=== PATIENT | female | born 1945 | race Caucasian/White ===

== ENCOUNTER → 2017-09-18 | Outpatient (REF) | payer OTHER ==
[2017-09-18 19:21] LABS: BASO % 0.5 % (0.0-1.0); EOS # 0.1 10^3/uL (0.0-0.50); EOS % 1.7 % (0.0-3.0); HEMATOCRIT 44.1 % (36.0-47.0); HEMOGLOBIN 15.6 g/dl (12.0-16.0); IMMATURE GRANULOCYTE % 0.5 % (0-0); LYMPH # 2.8 10^3/uL (1.5-4.5); MEAN CORPUSCULAR HEMOGLOBIN 32.4 pg (27.0-33.0); MEAN CORPUSCULAR HGB CONC 35.4 g/dl (32.0-36.5); MEAN CORPUSCULAR VOLUME 91.7 fl (80.0-96.0); MONO # 0.3 10^3/uL (0.0-0.8); MONO % 5.4 % (0.0-5.0); NEUTROPHILS # 2.6 10^3/uL (1.8-7.7); NEUTROPHILS % 44.9 % (36.0-66.0); PLATELET COUNT, AUTOMATED 279 10^3/uL (150-450); RED BLOOD COUNT 4.81 10^6/uL (4.00-5.40); WHITE BLOOD COUNT 5.9 10^3/uL (4.0-10.0)
[2017-09-18 19:47] LABS: ALBUMIN 4.4 GM/DL (3.2-5.2); ALKALINE PHOSPHATASE 129 U/L (45-117); ANION GAP 11 MEQ/L (8-16); BILIRUBIN,TOTAL 0.9 MG/DL (0.2-1.0); CARBON DIOXIDE LEVEL 24 MEQ/L (21-32); CHLORIDE LEVEL 103 MEQ/L (98-107); CHOLESTEROL LEVEL 330 MG/DL (<200); CHOLESTEROL RISK RATIO 11.379 (<5); CREATININE FOR GFR 0.87 MG/DL (0.55-1.02); GLOMERULAR FILTRATION RATE > 60.0 (>39); GLUCOSE, FASTING 148 MG/DL (83-110); HDL CHOLESTEROL 29 MG/DL (>40); NON-HDL-C 301 MG/DL; POTASSIUM SERUM 4.9 MEQ/L (3.5-5.1); SODIUM LEVEL 138 MEQ/L (136-145); TRIGLYCERIDES LEVEL 2734 MG/DL (<150)
[2017-09-18 20:07] LABS: ALBUMIN/GLOBULIN RATIO 1.07 (1.00-1.93); BLOOD UREA NITROGEN 16 MG/DL (7-18); CALCIUM LEVEL 9.3 MG/DL (8.8-10.2); TOTAL PROTEIN 8.5 GM/DL (6.4-8.2)
[2017-09-18 21:01] LABS: ALT/SGPT 48 U/L (12-78); AST/SGOT 45 U/L (7-37)
== END ==
LOC: M LAB REF 16:26
DX: E78.4 Other hyperlipidemia (principal); Z80.0 Family history of malignant neoplasm of digestive organs; Z83.3 Family history of diabetes mellitus; Z00.00 Encounter for general adult medical examination without abnormal findings
CPT/HCPCS: 80053

== ENCOUNTER 2018-01-18 08:13 | Day surgery (SDC) | payer OTHER ==
[~2018-01-18 08:13] MED LIST: LIDOCAINE 2% INJ 100 MG/5 ML SDV (FOR ANES.) As Ordered; PROPOFOL 200 MG/20 ML VIAL As Ordered
[2018-01-18] MEDS: NS 1,000 ML IV (08:28)
[2018-01-18] MEDS ORDERED: PROPOFOL 200 MG/20 ML VIAL As Ordered (10:14)
== END 2018-01-18 11:01 | disposition home or self-care (01) ==
LOC: M OPP 08:13
DX: Z12.11 Encounter for screening for malignant neoplasm of colon (principal); Z80.0 Family history of malignant neoplasm of digestive organs; D12.7 Benign neoplasm of rectosigmoid junction; D12.5 Benign neoplasm of sigmoid colon; D12.4 Benign neoplasm of descending colon; K62.1 Rectal polyp; K57.30 Diverticulosis of large intestine without perforation or abscess without bleeding; E78.5 Hyperlipidemia, unspecified; M19.90 Unspecified osteoarthritis, unspecified site; M54.30 Sciatica, unspecified side; Z78.0 Asymptomatic menopausal state; Z79.899 Other long term (current) drug therapy; Z80.8 Family history of malignant neoplasm of other organs or systems
CPT/HCPCS: 45385

== ENCOUNTER 2020-02-15 20:58 | Emergency (ER) | payer MEDICARE, OTHER ==
[~2020-02-15] VITALS: Ht 167.6 cm; Wt 86.1 kg
[~2020-02-15 20:58] MED LIST changes: +FENO145T7; -LIDOCAINE 2% INJ 100 MG/5 ML SDV (FOR ANES.) As Ordered; +MULT1TAB10 PO; +OMEG1CAP4; +PROBCAP4 PO; -PROPOFOL 200 MG/20 ML VIAL As Ordered
[2020-02-15 21:18] LABS: BASO % 0.2 % (0.0-1.0); EOS # 0.1 10^3/uL (0.0-0.5); EOS % 1.4 % (0.0-3.0); HEMATOCRIT 40.5 % (36.0-47.0); LYMPH # 2.8 10^3/uL (1.5-5.0); LYMPH % 33.8 % (24.0-44.0); MEAN CORPUSCULAR HEMOGLOBIN 33.7 pg (27.0-33.0); MONO # 0.5 10^3/uL (0.0-0.8); NEUTROPHILS # 4.9 10^3/uL (1.5-8.5); PLATELET COUNT, AUTOMATED 192 10^3/uL (150-450); RED BLOOD COUNT 4.45 10^6/uL (4.00-5.40); WHITE BLOOD COUNT 8.4 10^3/uL (4.0-10.0)
[2020-02-15 22:09] LABS: BLOOD UREA NITROGEN 16 MG/DL (7-18); CALCIUM LEVEL 7.1 MG/DL (8.8-10.2); CARBON DIOXIDE LEVEL 25 MEQ/L (21-32); CHLORIDE LEVEL 98 MEQ/L (98-107); CK-MB VALUE MASS 1.7 NG/ML (<3.6); CPK CREATINE PHOSPHOKINASE 190 U/L (26-192); CREATININE FOR GFR 0.88 MG/DL (0.55-1.30); GLOMERULAR FILTRATION RATE > 60.0 (>39); GLUCOSE, FASTING 213 MG/DL (70-100); MB/CK RELATIVE INDEX 0.89 (< OR =4); POTASSIUM SERUM 4.3 MEQ/L (3.5-5.1); SODIUM LEVEL 132 MEQ/L (136-145); TROPONIN I < 0.02 NG/ML (< 0.10)
[2020-02-15] MEDS ORDERED: cloNIDine 0.1 MG TAB PO ONE (22:30)
[2020-02-15] MEDS ORDERED: ISOVUE-370 76% 100ML VIAL As Ordered ONE ×2 (22:57→23:17)
--- NOTE | 2020-02-15 23:37 | REPVR ---
PROCEDURE INFORMATION: Exam: CT Angiography Chest With Contrast Exam date and time: 02/15/2020 11:28 PM Age: 74 years old Clinical indication: Other: Back pain TECHNIQUE: Imaging protocol: Computed tomographic angiography of the chest with intravenous contrast. 3D rendering: MIP and/or 3D reconstructed images were created by the technologist. Radiation optimization: All CT scans at this facility use at least one of these dose optimization techniques: automated exposure control; mA and/or kV adjustment per patient size (includes targeted exams where dose is matched to clinical indication); or iterative reconstruction. Contrast material: ISOVUE 370; Contrast volume: 100 ml; Contrast route: IV; COMPARISON: CR PORTABLE CHEST X-RAY 02/15/2020 9:22 PM FINDINGS: Pulmonary arteries: No focal pulmonary artery filling defect to suggest acute pulmonary embolus. Aorta: [place] type B aortic dissection originating just distal to the great vessel origins. Descending aorta measures 3.6 cm. Thyroid: Enlarged multinodular thyroid gland, incompletely imaged because of osseous and contrast related streak artifact. Lungs: Pulmonary vascular/interstitial pattern does not suggest active pulmonary edema. No suspicious lung mass or air space process. No central endobronchial lesion. Atelectasis is present at the lung bases. Pleural space: No pleural effusion or pneumothorax. Heart: No overt cardiac enlargement or abnormal volume of pericardial fluid. . Lymph nodes: No enlarged lymph nodes. Bones/joints: Bony structures are unremarkable except for benign DISH changes. IMPRESSION: 1. [place] type B aortic dissection extending into the upper abdomen. Thrombosed false lumen and homogeneously opacified true lumen. 2. No evidence of acute pulmonary emboli or other acute thoracic abnormality. Electronically signed by: Kris Butts On 02/15/2020 23:36:38 PM
--- NOTE | 2020-02-15 23:41 | REPVR ---
PROCEDURE INFORMATION: Exam: CT Abdomen And Pelvis With Contrast Exam date and time: 02/15/2020 11:28 PM Age: 74 years old Clinical indication: Abdominal pain; Other: Back; Additional info: Aneurysm eval TECHNIQUE: Imaging protocol: Computed tomography of the abdomen and pelvis with intravenous contrast. Radiation optimization: All CT scans at this facility use at least one of these dose optimization techniques: automated exposure control; mA and/or kV adjustment per patient size (includes targeted exams where dose is matched to clinical indication); or iterative reconstruction. Contrast material: ISOVUE 370; Contrast volume: 100 ml; Contrast route: IV; COMPARISON: No relevant prior studies available. FINDINGS: Liver: Liver demonstrates fatty infiltration with focal sparing around the gallbladder fossa. Gallbladder and bile ducts: Gallbladder is present and shows no evidence of gallstone. Pancreas: Pancreas appears normal. No focal mass or peripancreatic inflammation. Spleen: Spleen appears homogeneous without focal mass. Adrenals: Adrenal glands are normal in appearance. Kidneys and ureters: Kidneys appear normal, with no stone, solid mass or hydronephrosis. Stomach and bowel: Duodenal diverticulum is present. No evidence of small bowel obstruction. Diverticular changes are present within the colon without inflammation. Appendix: Normal caliber appendix is identified, with no adjacent inflammation. Intraperitoneal space: No pneumoperitoneum. Vasculature: [place] type B aortic dissection is present. The true lumen gives rise to the celiac trunk, SMA and main renal artery origins. The dissection appears to terminate just distal to the SMA origin. JOEY and iliac arteries show atherosclerotic change but otherwise normal enhancement. Eccentric atherosclerotic mural thrombus and plaque is seen distal to the dissection. Abdominal aorta measures up to 4.6 cm. In the portion of the dissection it measures up to 3.3 cm. Main portal and splenic veins enhance normally. Lymph nodes: No enlarged lymph nodes. Bladder: Urinary bladder appears normal. Reproductive: Bilateral ovarian cystic lesions are present, on the right measuring up to 5.5 cm and on the left, measuring 3 cm. Bones/joints: Lumbar spine and bilateral hip degenerative arthrosis changes are present Soft tissues: Unremarkable. IMPRESSION: 1. [place] type B aortic dissection originating just distal to the aortic arch origins and terminating just proximal to the SMA origin. All major aortic branch vessels arise from the true lumen and demonstrate no occlusion or high-grade stenosis. 2. 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 3. Hepatic steatosis. 4. Diverticulosis of the colon without active inflammation. 5. Bilateral cystic ovarian lesions without evidence of adenopathy, peritoneal disease or other concerning complication Electronically signed by: Kris Butts On 02/15/2020 23:41:07 PM
[2020-02-15] MEDS ORDERED: hydrALAZINE 20MG/ML 1ML VIAL (J0360 PER 20MG) IV STA (23:56)
[2020-02-16] MEDS ORDERED: hydrALAZINE 20MG/ML 1ML VIAL (J0360 PER 20MG) IV STA (00:44)
[2020-02-16 00:54] VITALS: BP 168/86
[2020-02-16 01:40] VITALS: BP 166/77
--- NOTE | 2020-02-16 14:33 | REP ---
Single view chest: 02/15/2020. Indication: Chest pain. Comparison: None. Findings: The lungs are clear. There is no pleural effusion or pneumothorax. The cardiac silhouette is normal. Indication: Clear lungs. Electronically Signed by Jalil Flores DO 02/16/2020 02:25 P
--- NOTE | 2020-02-16 16:08 | ECGEPIP ---
[facility] - ED Test Date: 2020-02-15 Pat Name: GAYATRI JAFFE Department: Room: - Gender: Female Physiotherapy Assistant: aziza : 1945 Requested By: BOOM NUÑEZ Order Number: [id number] Reading MD: Soumya Oglesby Measurements Intervals Banner Rate: 89 P: 38 VA: 162 QRS: 18 QRSD: 96 T: 31 QT: 361 QTc: 441 Interpretive Statements SINUS RHYTHM NO PRIOR Electronically Signed on 02-16-2020 16:08:53 EDT by Soumya Oglesby
[2020-04-23] MEDS ORDERED: LOPR1TAB7 PO (13:41)
[2020-04-23] MEDS ORDERED: AMLO1TAB25 PO (13:41)
[2020-04-23] MEDS ORDERED: HYDR25TAB PO (13:41)
== END 2020-02-16 01:45 | disposition short-term general hospital (02) ==
LOC: M ED 20:58
DX: I71.9 Aortic aneurysm of unspecified site, without rupture (principal)
CPT/HCPCS: 71045; 71275; 74177; 80048; 82550; 82553; 84484; 85025; 93005; 93041; 94760; 96374; 96376; 99285; J0360; Q9967

== ENCOUNTER → 2020-12-28 | Outpatient (CLI) | payer MEDICARE ==
[~2020-12-28] MED LIST changes: +AMLO1TAB25 PO; +CIDA500T2 PO; +FENO160T10 PO; +FENO1CAP16 PO; +HYDR-3490 PO; +LOPR1TAB7 PO; -OMEG1CAP4; +OMEG1CAP85
--- NOTE | 2020-12-28 10:50 | REP ---
INDICATION: ELEVATED FERRITIN EVAL IRON OVER LOAD. COMPARISON: Comparison CT study of the abdomen and pelvis February 15, 2020.. TECHNIQUE: Axial and coronal T1 and T2 weighted scans include spin echo, fast spin echo, diffusion, in and out of phase and gradient echo sequences. FINDINGS: Incidental note is made of a thoracoabdominal aortic aneurysm as seen on prior CT study. Prior CT study showed a dissection with true and false lumen in the descending aorta. There is mural thrombus in the abdominal component of the aneurysm. The abdominal aortic aneurysm measures 4.8 cm in anteroposterior dimension unchanged from the comparison CT angiography February 15, 2020. No Fidelia aneurysmal hemorrhage is seen. No focal hepatic or splenic lesion is seen. The liver measures 18.9 cm in vertical span in the midclavicular line which is mildly enlarged. In and out of phase images show signal loss in the liver parenchyma diffusely on the out of phase image which is typical of fatty infiltration of the liver. Fatty infiltration of the liver was evident on CT study from February of 2020. Gradient echo images demonstrate liver parenchyma signal lower than skeletal muscle which may reflect minimal iron deposition. There is no evidence of ascites. No renal or adrenal abnormality is observed. The spleen is normal in size. There is a small polyp versus septation at the fundus of the gallbladder. No pancreatic lesion is seen. IMPRESSION: The dominant signal intensity abnormality in the liver is that of fatty infiltration. There is mild hepatomegaly. On gradient echo sequence there is evidence of minimal iron deposition in the liver. Incidental note is made of a 4.8 cm abdominal aortic aneurysm. Known thoracic aortic dissecting aneurysm. <Electronically signed by Gerry Garber > 12/28/20 [id number]
== END ==
LOC: M RAD 07:49
PROVIDERS: ATTEND Internal Medicine Medical Oncology
DX: K76.0 Fatty (change of) liver, not elsewhere classified (principal); I71.4 Abdominal aortic aneurysm, without rupture; I71.2 Thoracic aortic aneurysm, without rupture; R79.89 Other specified abnormal findings of blood chemistry

== ENCOUNTER → 2021-01-25 | Outpatient (CLI) | payer MEDICARE ==
--- NOTE | 2021-01-25 11:39 | REP ---
INDICATION: R HIP PAIN. COMPARISON: Comparison is made with images obtained as part of CT study February 15, 2020.. TECHNIQUE: AP and frogleg views of the right hip are provided. FINDINGS: There is severe osteoarthritis of the right hip with joint space narrowing most pronounced superiorly, fairly exuberant acetabular and femoral head osteophyte formation, and sclerotic changes on either side of the narrowed joint. Vascular calcification is observed. There is also tendon insertion site spurring visible at the greater trochanter and L along the iliac crest. There is mild diffuse osteopenia. IMPRESSION: Severe osteoarthritis right hip. No bony destructive lesion is seen. <Electronically signed by Gerry Garber > 01/25/21 [id number]
== END ==
LOC: M RAD 10:48
PROVIDERS: ATTEND Internal Medicine Medical Oncology
DX: M16.11 Unilateral primary osteoarthritis, right hip (principal); M85.851 Other specified disorders of bone density and structure, right thigh

== ENCOUNTER → 2021-04-26 | Outpatient (REF) | payer MEDICARE | LOC: M LAB REF 18:40 | PROVIDERS: ATTEND Internal Medicine Endocrinology, Diabetes & Metabolism | DX: E04.2 Nontoxic multinodular goiter (principal) ==

== ENCOUNTER → 2021-08-31 | Outpatient (REF) | payer MEDICARE | LOC: M LAB REF 17:22 | PROVIDERS: ATTEND Internal Medicine Endocrinology, Diabetes & Metabolism | DX: E04.2 Nontoxic multinodular goiter (principal) ==

== ENCOUNTER → 2021-11-03 | Outpatient (CLI) | payer MEDICARE | LOC: M SOG 13:09 | PROVIDERS: ATTEND Orthopaedic Surgery Adult Reconstructive Orthopaedic Surgery | DX: M16.0 Bilateral primary osteoarthritis of hip (principal) ==

== ENCOUNTER → 2021-12-07 | Outpatient (CLI) | payer MEDICARE, OTHER ==
[~2021-12-07] MED LIST changes: +ATOR1TAB19 PO; +BIOT1CAP2 PO; +MELO15TA28 PO
== END ==
LOC: M RAD 10:36
PROVIDERS: ATTEND Orthopaedic Surgery Adult Reconstructive Orthopaedic Surgery
DX: M16.0 Bilateral primary osteoarthritis of hip (principal); M47.816 Spondylosis without myelopathy or radiculopathy, lumbar region; M17.0 Bilateral primary osteoarthritis of knee; I71.4 Abdominal aortic aneurysm, without rupture

== ENCOUNTER → 2021-12-09 | Outpatient (CLI) | payer MEDICARE | LOC: M LABSMTC 09:07 | PROVIDERS: ATTEND Anesthesiology | DX: Z01.818 Encounter for other preprocedural examination (principal); Z11.52 Encounter for screening for COVID-19 ==

== ENCOUNTER → 2021-12-30 | Outpatient (CLI) | payer OTHER ==
[~2021-12-30] MED LIST changes: +ACET1TAB55 PO; +ASCO50TA PO; +ASPI-551 PO; +COLA100C5 PO; +OXYC-517 PO; +SENN18TA PO
== END ==
LOC: M LABSMTC 10:28
PROVIDERS: ATTEND Anesthesiology
DX: Z01.812 Encounter for preprocedural laboratory examination (principal); Z11.52 Encounter for screening for COVID-19

== ENCOUNTER 2022-01-04 06:07 | Inpatient (IN) | payer OTHER ==
[~2022-01-04] VITALS: Ht 167.6 cm; Wt 85.6 kg
[~2022-01-04 06:07] MED LIST changes: -ACET1TAB55 PO; +ACETAMINOPHEN 500 MG TAB PO ONE; -ASCO50TA PO; -ASPI-551 PO; -COLA100C5 PO; +NAPROXEN 250 MG TAB PO ONE; +NS 1,000 ML IV ONE; +NS MINI IV ONE; -OXYC-517 PO; +PREGABALIN 25 MG CAP (LYRICA) PO ONE; +ROPIVA 125MG/EPINEPH 0.25MG/CLONID 40MCG/KETOR 15MG IN NS 50ML SYRINGE PA ONE; -SENN18TA PO; +TRANEXAMIC ACID IV ONE; +ceFAZolin SOD 2 GM in IV 1 EA IV ONE; +dexameTHASONE 4 MG/ML 1ML VIAL (J1100 PER 1MG) IV ONE
[2022-01-04] MEDS ORDERED: TRANEXAMIC ACID 100 MG/ML 10ML VIAL As Ordered ONE ×2 (07:12→07:13)
[2022-01-04] MEDS ORDERED: ONDANSETRON 4MG/2ML VIAL As Ordered ONE (07:17)
[2022-01-04] MEDS ORDERED: dexameTHASONE 4 MG/ML 1ML VIAL (J1100 PER 1MG) As Ordered ONE (07:17)
[2022-01-04] MEDS ORDERED: fentaNYL 100 MCG/2 ML INJECTION As Ordered ONE ×2 (07:17→09:35)
[2022-01-04] MEDS ORDERED: propofoL 500 MG/50 ML VIAL As Ordered ONE (07:17)
[2022-01-04] MEDS ORDERED: MIDAZOLAM INJ 2MG/2ML VIAL (J2250 PER 1MG) As Ordered ONE (07:17)
[2022-01-04] MEDS ORDERED: LIDOCAINE 2% 100MG/5ML SDV (FOR ANES.) As Ordered ONE (07:18)
[2022-01-04] MEDS ORDERED: ePHEDrine SULFATE 25 MG/5 ML(5MG/ML) SYRINGE As Ordered ONE ×2 (08:43→09:34)
[2022-01-04] MEDS ORDERED: PHENYLephrine 500MCG 5ML (100MCG/ML) SYRINGE As Ordered ONE ×2 (08:43→09:34)
[2022-01-04] MEDS ORDERED: propofoL 200 MG/20 ML VIAL As Ordered ONE ×4 (09:16→10:22)
[2022-01-04] MEDS ORDERED: fentaNYL 100 MCG/2 ML INJECTION IV PRN (11:20)
[2022-01-04] MEDS ORDERED: LR 1,000 ML IV SCH (11:20)
[2022-01-04] MEDS ORDERED: ONDANSETRON 4MG/2ML VIAL IV PRN ×2 (11:20)
[2022-01-04] MEDS ORDERED: MORPHINE 4 MG/ML 1ML VIAL/SYRINGE IV PRN (11:20)
[2022-01-04] MEDS: LR 1,000 ML IV SCH ×2 (11:20→21:48)
[2022-01-04] MEDS ORDERED: SENNA 8.6 MG TAB (SENOKOT) PO PRN (11:30)
[2022-01-04] MEDS ORDERED: oxyCODONE 5MG TAB PO PRN ×2 (11:30)
[2022-01-04] MEDS: oxyCODONE 5MG TAB PO PRN ×2 (12:04→13:03)
[2022-01-04 14:40] VITALS: BP 111/62
[2022-01-04] MEDS: traMADol 50 MG TAB PO PRN ×2 (14:53→21:50)
[2022-01-04] MEDS: ACETAMINOPHEN TAB 650MG DOSE (2X325MG) PO SCH ×2 (14:53→17:47)
[2022-01-04 15:10] VITALS: BP 111/67
[2022-01-04 16:10] VITALS: BP 107/67
[2022-01-04] MEDS: ceFAZolin SOD 2 GM in IV 1 EA IV SCH (16:45)
[2022-01-04 17:10] VITALS: BP 106/67
[2022-01-04 18:10] VITALS: BP 100/66
[2022-01-04] MEDS: ASPIRIN 81MG ENTERIC TABLET PO SCH (21:50)
[2022-01-04] MEDS: NAPROXEN 250 MG TAB PO SCH (21:50)
[2022-01-04] MEDS: DOCUSATE SODIUM 100MG CAPSULE PO SCH (21:51)
[2022-01-04 22:00] VITALS: BP 106/67
[2022-01-05] MEDS: ACETAMINOPHEN TAB 650MG DOSE (2X325MG) PO SCH ×3 (00:11→12:52)
[2022-01-05] MEDS: ceFAZolin SOD 2 GM in IV 1 EA IV SCH (00:11)
[2022-01-05 02:00] VITALS: BP 109/67
[2022-01-05] MEDS: LR 1,000 ML IV SCH (05:47)
[2022-01-05 06:00] VITALS: BP 112/65
[2022-01-05 06:49] LABS: HEMATOCRIT 31.6 % (36.0-47.0); HEMOGLOBIN 10.3 g/dl (12.0-15.5); MEAN CORPUSCULAR HEMOGLOBIN 30.7 pg (27.0-33.0); MEAN CORPUSCULAR HGB CONC 32.6 g/dl (32.0-36.5); MEAN CORPUSCULAR VOLUME 94.3 fl (80.0-96.0); PLATELET COUNT, AUTOMATED 202 10^3/uL (150-450); RED BLOOD COUNT 3.35 10^6/uL (4.00-5.40); WHITE BLOOD COUNT 8.4 10^3/uL (4.0-10.0)
[2022-01-05] MEDS ORDERED: ASCORBIC ACID 500 MG TAB PO SCH (09:00)
[2022-01-05 09:16] LABS: CALCIUM LEVEL 9.2 MG/DL (8.8-10.2); CREATININE FOR GFR 1.02 MG/DL (0.55-1.30); GLOMERULAR FILTRATION RATE 56.2 (>39)
[2022-01-05] MEDS: DOCUSATE SODIUM 100MG CAPSULE PO SCH (09:32)
[2022-01-05] MEDS: NAPROXEN 250 MG TAB PO SCH (09:32)
[2022-01-05] MEDS: traMADol 50 MG TAB PO PRN (09:32)
[2022-01-05] MEDS: ASPIRIN 81MG ENTERIC TABLET PO SCH (09:32)
[2022-01-05 10:00] VITALS: BP 113/62
[2022-01-05] MEDS ORDERED: ASPI-551 PO (11:18)
[2022-01-05] MEDS ORDERED: ACET1TAB55 PO (11:18)
[2022-01-05] MEDS ORDERED: OXYC-517 PO (11:18)
[2022-01-05] MEDS ORDERED: ASCO50TA PO (11:18)
[2022-01-05] MEDS ORDERED: SENN18TA PO (11:20)
[2022-01-05] MEDS ORDERED: COLA100C5 PO (11:20)
[2022-01-06] MEDS ORDERED: ATORVASTATIN 10 MG TAB PO SCH (09:00)
== END 2022-01-05 14:10 | disposition home health service (06) | DRG 470 ==
LOC: M SDC 06:07 → M MS5PR 11:46
PROVIDERS: ADMIT Internal Medicine Nephrology; ATTEND Internal Medicine Nephrology
PROC: 8E0Y0CZ Robotic Assisted Procedure of Lower Extremity, Open Approach (ICD-10-PCS; 2022-01-04)
PROC: 0SR904Z Replacement of Right Hip Joint with Ceramic on Polyethylene Synthetic Substitute, Open Approach (ICD-10-PCS; principal; 2022-01-04 07:30)
DX: M16.11 Unilateral primary osteoarthritis, right hip (principal); M25.751 Osteophyte, right hip; I10 Essential (primary) hypertension; I71.4 Abdominal aortic aneurysm, without rupture; E78.5 Hyperlipidemia, unspecified; K76.0 Fatty (change of) liver, not elsewhere classified; Z79.899 Other long term (current) drug therapy

== ENCOUNTER → 2022-01-17 | Outpatient (CLI) | payer OTHER ==
[~2022-01-17] MED LIST changes: +ACET1TAB55 PO; -ACETAMINOPHEN 500 MG TAB PO ONE; +ASCO50TA PO; +ASPI-551 PO; +COLA100C5 PO; -NAPROXEN 250 MG TAB PO ONE; -NS 1,000 ML IV ONE; -NS MINI IV ONE; +OXYC-517 PO; -PREGABALIN 25 MG CAP (LYRICA) PO ONE; -ROPIVA 125MG/EPINEPH 0.25MG/CLONID 40MCG/KETOR 15MG IN NS 50ML SYRINGE PA ONE; +SENN18TA PO; -TRANEXAMIC ACID IV ONE; -ceFAZolin SOD 2 GM in IV 1 EA IV ONE; -dexameTHASONE 4 MG/ML 1ML VIAL (J1100 PER 1MG) IV ONE
== END ==
LOC: M SOG 08:00
PROVIDERS: ATTEND Orthopaedic Surgery Adult Reconstructive Orthopaedic Surgery
DX: M16.0 Bilateral primary osteoarthritis of hip (principal); M16.31 Unilateral osteoarthritis resulting from hip dysplasia, right hip

== ENCOUNTER → 2023-11-16 | Outpatient (CLI) | payer OTHER ==
[~2023-11-16] MED LIST changes: +SENN-111 PO; -SENN18TA PO
== END ==
LOC: M WHC 11:53
PROVIDERS: ATTEND Registered Nurse
DX: R93.5 Abnormal findings on diagnostic imaging of other abdominal regions, including retroperitoneum (principal)

== ENCOUNTER → 2023-12-26 | Outpatient (CLI) | payer OTHER ==
[~2023-12-26] MED LIST changes: +PROHANCE 279.3MG/ML 15ML VIAL ONE
== END ==
LOC: M PLAIMG 14:49
PROVIDERS: ATTEND Obstetrics & Gynecology
DX: N94.89 Other specified conditions associated with female genital organs and menstrual cycle (principal)
CPT/HCPCS: 72197; A9576